=== PATIENT | female | born 1955 | race Two or more races ===

== ENCOUNTER 2021-12-15 19:16 | Emergency (ER) | payer OTHER ==
[~2021-12-15] VITALS: Ht 162.6 cm; Wt 80.0 kg
[2021-12-15 19:43] LABS: Basophils # (auto) 0 10 ^3/uL (0-0.2); Basophils % (auto) 0.5 % (0.0-2.0); Eosinophils # (auto) 0.1 10 ^3/uL (0-0.8); Eosinophils % (auto) 1.8 % (0.0-7.0); Hematocrit 39.7 % (36.0-46.0); Hemoglobin 13.4 g/dL (12.2-16.2); Lymphocytes # (auto) 0.6 10 ^3/uL (0.4-5.4); Lymphocytes % (auto) 9.3 % (10.0-50.0); Mean Corpuscular Hemoglobin 30.7 pg (28.0-32.0); Mean Corpuscular Hgb Conc. 33.8 g/dL (32.0-36.0); Mean Corpuscular Volume 90.8 fL (80.0-100.0); Monocytes # (auto) 0.4 10 ^3/uL (0-1.3); Monocytes % (auto) 5.6 % (0.0-12.0); Neutrophils # (auto) 5.3 10 ^3/uL (1.6-8.6); Neutrophils % (auto) 82.8 % (37.0-80.0); Red Blood Cells 4.37 10^6/uL (4.0-5.20); Red Cell Distribution Width 13.9 % (11.8-14.3); White Blood Cell 6.5 10^3/uL (4.4-10.8)
[2021-12-15 20:03] LABS: Albumin 3.5 g/dL (3.4-5.0); BUN/Creatinine Ratio 16.2; Calcium 8.7 mg/dL (8.5-10.1); Potassium 3.9 mmol/L (3.5-5.1)
[2021-12-15 20:05] LABS: Bilirubin, Total 0.3 mg/dL (0.2-1.0); Total Protein 6.3 g/dL (6.4-8.2)
[2021-12-15] MEDS ORDERED: ACETAMINOPHEN 325 MG TAB PO ONE (21:15)
[2021-12-16 10:00] VITALS: BP 140/56
== END 2021-12-16 17:15 | disposition home or self-care (01) ==
LOC: EDBD 19:16 → ER 19:16
DX: S32.029A Unspecified fracture of second lumbar vertebra, initial encounter for closed fracture (principal); R16.1 Splenomegaly, not elsewhere classified; W06.XXXA Fall from bed, initial encounter; Y93.89 Activity, other specified; Y92.89 Other specified places as the place of occurrence of the external cause; Y99.8 Other external cause status
CPT/HCPCS: 36415; 71250; 74176; 80053; 84484; 85025; 93005; A4565